=== PATIENT | male | born 1940 | race Caucasian/White ===

== ENCOUNTER → 2018-01-11 08:23 | Outpatient (CLI) | payer MEDICARE, OTHER, SELFPAY ==
[2017-12-31 11:36] VITALS: BP 156/85; PULSE 67; RESP 18; TEMP 37.4; O2SAT 99; BMI 25.0
--- NOTE | 2017-12-31 11:44 | SDCEKG_ITS ---
Test Reason : Blood Pressure : / mmHG Vent. Rate : 065 BPM Atrial Rate : 065 BPM P-R Int : 184 ms QRS Dur : 106 ms QT Int : 410 ms P-R-T Axes : 020 056 080 degrees QTc Int : 426 ms Normal sinus rhythm Normal ECG Confirmed by SANDER CHAIREZ, NEREYDA ([id number]), editor trade journal SOHA DIAZ ([id number] on 01/01/2018 8:28:47 AM Referred By: Patrick Watson Confirmed By:NEREYDA BOUCHER MD
[2017-12-31 12:35] LABS: Hematocrit 35.9 % (40-54); Hemoglobin 12.3 g/dl (13.0-16.5); Mean Corp Hgb Conc 34.3 g/gl (32-36); Mean Corpuscular Hgb 28.6 pg (27.0-32.0); Mean Corpuscular Volume 83.5 fL (80-94); Mean Platelet Vol. 9.3 fl (6.2-12.0); Platelet Count 184 K/mm3 (150-450); RBC Distribution Width CV 15.5 % (11.6-14.6); RBC Distribution Width SD 47.5 fl (35.1-43.9)
[2017-12-31 12:37] LABS: Scan Indicated on CBC? Y/N NO
[2017-12-31 13:35] LABS: Anion Gap 8 (5-15); BUN 19 mg/dL (7-18); BUN/Creat Ratio 21.5 RATIO (10-20); Calcium,Total 8.8 mg/dL (8.5-10.1); Chloride 89 mmol/L (98-107); Creatinine, Serum 0.88 mg/dL (0.70-1.30); EST Glomerular Filtration Rate 89 mL/min (>60); Est Glom Filt Rate - Afr Amer 108 mL/min (>60); Estimated Creatinine Clearance 79.61 ml/min; Glucose 72 mg/dL (74-106); Potassium 4.6 mmol/L (3.5-5.1); Sodium Level 123 mmol/L (136-145); Thyroid Stim Hormone (TSH) 5.33 uIU/mL (0.358-3.74)
== END ==
PROVIDERS: Anesthesiology; Family Provider Family Medicine; PCP Family Medicine; Visit Provider Urology
DX: Z01.812 Encounter for preprocedural laboratory examination (principal)
CPT/HCPCS: 80048; 84443; 85027; 93005

== ENCOUNTER 2018-01-23 05:21 | Day surgery (SDC) | payer MEDICARE, OTHER, SELFPAY ==
[2018-01-23] VITALS (12 sets, daily range): BP systolic 104–168; BP diastolic 58–85; PULSE 60–75; RESP 12–18; TEMP 36.3–36.8; O2SAT 94–100; BMI 22.6
[2018-01-23 06:36] LABS: Prothrombin Time Fingerstick 13.3 SEC (11.9-14.4)
[2018-01-23] MEDS: Cefazolin 2 GM in 0.9% Normal Saline 100 ML IV (07:17)
--- NOTE | 2018-01-23 08:05 | PCM.OPRPT ---
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 We tried several antispasm bladder medications without improvement I told the patient most likely benefit would be from doing a resection of his bladder neck contracture and a TURP of the prostate. 78-year-old male taken back to the operating room after smooth induction of general anesthesia he was placed in dorsal lithotomy position I went into the bladder with a 21 [place] rigid cystourethroscope when I got to the sphincter or the Sandeep had been partially destroyed from prior procedure, difficult to identify but appeared to be right above the sphincter he did have a small contracted channel from the sphincter into his bladder. I then took up to the scope that I put in the 26 [place] continuous flow resectoscope and then started the resection with the button I started at the bladder neck contracture and cut this wide open circumferentially to open up the channel very nicely I then very carefully worked my way back to the sphincter again the verumontanum is been partially dispersed destroyed from prior laser surgery but I was able to identify the sphincter complex and made sure that I did not resect past the sphincter complex. I the use the button I circumferentially vaporized the BPH and obstructive tissue and opened up the bladder neck contracture to all have a nice wide open channel into the bladder the left to right ureteral orifices were uninjured inside the bladder there were no tumors or stones on the bladder was heavily trabeculated from chronic obstruction. After resecting the prostate the bladder neck contracture he had a nice wide open channel from the sphincter all the way into the bladder remove the scope did a Valsalva maneuver and had a wide open flow. I went back in with the 24 [place] resectoscope and very carefully smoothed out the apical tissue pulled back behind the sphincter and the sphincter coapted together so felt very confident that his bladder control and sphincter mechanism worked fairly well I then drained the bladder put a 22 [place] catheter into the bladder with continuous bladder irrigation the patient was taken back to PACU in good condition. Type of Anesthesia:: General Drains: 22 fr leiva - Admit VTE Documentation VTE Present on Admission: No VTE Mechan Device Prophylaxis: SCD's VTE Pharm Prophylaxis ordered?: No Reason prophylaxis not ordered:: Treatment Not Indicated
--- NOTE | 2018-01-23 08:09 | OP.PCM_ITS ---
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 We tried several antispasm bladder medications without improvement I told the patient most likely benefit would be from doing a resection of his bladder neck contracture and a TURP of the prostate. 78-year-old male taken back to the operating room after smooth induction of general anesthesia he was placed in dorsal lithotomy position I went into the bladder with a 21 [place] rigid cystourethroscope when I got to the sphincter or the Sandeep had been partially destroyed from prior procedure, difficult to identify but appeared to be right above the sphincter he did have a small contracted channel from the sphincter into his bladder. I then took up to the scope that I put in the 26 [place] continuous flow resectoscope and then started the resection with the button I started at the bladder neck contracture and cut this wide open circumferentially to open up the channel very nicely I then very carefully worked my way back to the sphincter again the verumontanum is been partially dispersed destroyed from prior laser surgery but I was able to identify the sphincter complex and made sure that I did not resect past the sphincter complex. I the use the button I circumferentially vaporized the BPH and obstructive tissue and opened up the bladder neck contracture to all have a nice wide open channel into the bladder the left to right ureteral orifices were uninjured inside the bladder there were no tumors or stones on the bladder was heavily trabeculated from chronic obstruction. After resecting the prostate the bladder neck contracture he had a nice wide open channel from the sphincter all the way into the bladder remove the scope did a Valsalva maneuver and had a wide open flow. I went back in with the 24 [place] resectoscope and very carefully smoothed out the apical tissue pulled back behind the sphincter and the sphincter coapted together so felt very confident that his bladder control and sphincter mechanism worked fairly well I then drained the bladder put a 22 [place] catheter into the bladder with continuous bladder irrigation the patient was taken back to PACU in good condition. Type of Anesthesia:: General Drains: 22 fr leiva - Admit VTE Documentation VTE Present on Admission: No VTE Mechan Device Prophylaxis: SCD's VTE Pharm Prophylaxis ordered?: No Reason prophylaxis not ordered:: Treatment Not Indicated
[2018-01-23] MEDS: Docusate Sodium 100 MG Capsule PO ×2 (13:02→22:42)
[2018-01-23] MEDS: Pantoprazole Sodium 40 MG Tablet PO (13:02)
[2018-01-23] MEDS: Ciprofloxacin 500 MG Tablet PO ×2 (13:02→22:44)
[2018-01-23] MEDS: 0.9% Normal Saline 1,000 ML 75 ML IV (17:32)
[2018-01-23] MEDS: Gabapentin 300 MG Capsule PO (17:33)
[2018-01-23] MEDS: Acetaminophen 325 MG Tablet PO (20:25)
[2018-01-23] MEDS: oxyCODONE 5 MG Tablet PO (20:26)
[2018-01-23] MEDS: diazePAM 5 MG Tablet PO (22:42)
[2018-01-23] MEDS: HYDROcodone Bitartrate/Apap 5/325 Tablet PO (22:42)
[2018-01-23] MEDS: Atorvastatin Calcium 40 MG Tablet PO (22:43)
[2018-01-24 02:33] VITALS: BP 117/64; PULSE 67; RESP 16; TEMP 36.6; O2SAT 99
[2018-01-24] MEDS: 0.9% Normal Saline 1,000 ML 75 ML IV (06:20)
[2018-01-24 06:21] VITALS: TEMP 36.4
[2018-01-24] MEDS: HYDROcodone Bitartrate/Apap 5/325 Tablet PO (06:23)
--- NOTE | 2018-01-24 07:05 | PCM.DC.URO ---
Discharge Diet: Light diet - advance as tolerated Discharge Activity: Return to Normal Activity, May Not Drive May shower in (days): 1 Call your doctor if your incision/area has: Continuous Slow Oozing, Sudden Increased Bleeding, Increased Pain/ Swelling, Increased Redness, Foul Smelling Discharge, Swelling at the incision site Call your doctor if you observe: Fever of 101 or Higher, Inability to urinate Suture Line Care: Avoid Pulling/Pushing, Avoid Pinching/Bending Instructions: Transurethral Resection of the Prostate (TURP): Home Recovery Allergies/Adverse Reactions: Allergies dutasteride Allergy (Verified 01/11/18 08:22) Rash propoxyphene [From Darvocet-N] Allergy (Verified 01/11/18 08:22) Hives Medications to take at Discharge Amiodarone HCl [Cordarone] 200 mg PO DAILY 12/31/17 Aspirin [Aspir-Low] 81 mg PO DAILY 12/31/17 Atorvastatin Calcium [Lipitor] 40 mg PO DAILY 12/31/17 Cetirizine HCl [Zyrtec] 10 mg PO DAILY 12/31/17 Desmopressin Acetate 0.2 mg PO QHS 12/31/17 Diazepam [Valium] 5 mg PO TID PRN 12/31/17 Dutasteride [Avodart] 0.5 mg PO DAILY 12/31/17 Gabapentin [Neurontin] 300 mg PO BIDCM 12/31/17 Hydrocodone/Acetaminophen [Hydrocodon-Acetaminophn 10-325] 1 each PO Q6H PRN PRN 12/31/17 Liothyronine Sodium [Cytomel] 50 mcg PO DAILY 12/31/17 Mirabegron [Myrbetriq] 25 mg PO DAILY 12/31/17 Warfarin [Coumadin ([facility])] 2.5 mg PO SUMOTUTHFR 12/31/17 Warfarin [Coumadin ([facility])] 5 mg PO WESA 12/31/17 Ciprofloxacin [Cipro] 500 mg PO BID #14 tab 01/24/18 Docusate Sodium [Colace] 100 mg PO BID #20 cap 01/24/18 The following prescriptions were given: Ciprofloxacin [Cipro] 500 mg PO BID #14 tab Docusate Sodium [Colace] 100 mg PO BID #20 cap Primary Care Physician: Sebas Ruiz [Primary Care Provider] - Please Follow Up With: Patrick Watson MD - call if need to change appt. When: appt with Dr Watson February 07 at 10:30 am
--- NOTE | 2018-01-24 07:09 | PCM.DC.URO ---
Discharge Diet: Light diet - advance as tolerated Discharge Activity: Return to Normal Activity, May Not Drive May shower in (days): 1 Call your doctor if your incision/area has: Continuous Slow Oozing, Sudden Increased Bleeding, Increased Pain/ Swelling, Increased Redness, Foul Smelling Discharge, Swelling at the incision site Call your doctor if you observe: Fever of 101 or Higher, Inability to urinate Suture Line Care: Avoid Pulling/Pushing, Avoid Pinching/Bending Instructions: Transurethral Resection of the Prostate (TURP): Home Recovery Allergies/Adverse Reactions: Allergies dutasteride Allergy (Verified 01/11/18 08:22) Rash propoxyphene [From Darvocet-N] Allergy (Verified 01/11/18 08:22) Hives Medications to take at Discharge Amiodarone HCl [Cordarone] 200 mg PO DAILY 12/31/17 Atorvastatin Calcium [Lipitor] 40 mg PO DAILY 12/31/17 Cetirizine HCl [Zyrtec] 10 mg PO DAILY 12/31/17 Diazepam [Valium] 5 mg PO TID PRN 12/31/17 Gabapentin [Neurontin] 300 mg PO BIDCM 12/31/17 Hydrocodone/Acetaminophen [Hydrocodone-Acetamin 10-325 mg] 1 each PO Q6H PRN PRN 12/31/17 Liothyronine Sodium [Cytomel] 50 mcg PO DAILY 12/31/17 Warfarin [Coumadin] 2.5 mg PO SUMOTUTHFR 12/31/17 Warfarin [Coumadin] 5 mg PO WESA 12/31/17 Ciprofloxacin [Cipro] 500 mg PO BID #14 tab 01/24/18 Docusate Sodium [Colace] 100 mg PO BID #20 cap 01/24/18 The following prescriptions were given: Ciprofloxacin [Cipro] 500 mg PO BID #14 tab Docusate Sodium [Colace] 100 mg PO BID #20 cap Primary Care Physician: Sebas Ruiz [Primary Care Provider] - Please Follow Up With: Patrick Watson MD When: appt on February 07 at 10:30am for follow up.
[2018-01-24] MEDS: Ciprofloxacin 500 MG Tablet PO (08:46)
[2018-01-24] MEDS: Docusate Sodium 100 MG Capsule PO (08:46)
[2018-01-24] MEDS: Gabapentin 300 MG Capsule PO (08:46)
[2018-01-24] MEDS: Amiodarone 200 MG Tablet PO (08:47)
[2018-01-24] MEDS: Pantoprazole Sodium 40 MG Tablet PO (08:47)
[2018-01-24] MEDS: Loratadine 10 MG Tablet PO (08:50)
[2018-01-24 08:59] VITALS: BP 133/92; PULSE 68; RESP 18; TEMP 36.4; O2SAT 98
[2018-01-24 10:05] VITALS: BP 138/70; PULSE 74; RESP 18; TEMP 36.9; O2SAT 98
== END 2018-01-24 07:10 | disposition home or self-care (01) ==
LOC: SDC 05:22 → MS3 09:16
PROVIDERS: Family Provider Family Medicine; PCP Family Medicine; Visit Provider Urology
PROC: (CPT 52630; principal; 2018-01-23 07:05)
DX: N40.1 Benign prostatic hyperplasia with lower urinary tract symptoms (principal); N13.8 Other obstructive and reflux uropathy; I48.91 Unspecified atrial fibrillation; H91.90 Unspecified hearing loss, unspecified ear; I25.10 Atherosclerotic heart disease of native coronary artery without angina pectoris; Z79.899 Other long term (current) drug therapy; Z79.82 Long term (current) use of aspirin; Z79.01 Long term (current) use of anticoagulants; Z95.1 Presence of aortocoronary bypass graft; I10 Essential (primary) hypertension; Q21.1 Atrial septal defect; E78.00 Pure hypercholesterolemia, unspecified; K21.9 Gastro-esophageal reflux disease without esophagitis; F41.9 Anxiety disorder, unspecified
CPT/HCPCS: 52630; 36416; 85610; J7030; J7120; J2405

== ENCOUNTER → 2018-08-20 18:44 | Outpatient (CLI) | payer MEDICARE, OTHER, SELFPAY | PROVIDERS: Referring Provider Urology; Visit Provider Urology | DX: R82.99 Other abnormal findings in urine (principal); R35.0 Frequency of micturition | CPT/HCPCS: 87086 ==

== ENCOUNTER 2018-09-20 11:31 | Day surgery (SDC) | payer MEDICARE, OTHER, SELFPAY ==
[2018-09-13 11:13] VITALS: BP 144/76; PULSE 66; RESP 16; TEMP 36.9; O2SAT 97; BMI 25.2
[2018-09-13 12:26] LABS: Hematocrit 42.9 % (40-54); Mean Corp Hgb Conc 32.6 g/gl (32-36); Mean Corpuscular Hgb 28.7 pg (27.0-32.0); Mean Corpuscular Volume 88.1 fL (80-94); Mean Platelet Vol. 10.9 fl (6.2-12.0); Platelet Count 195 K/mm3 (150-450); RBC Distribution Width CV 15.3 % (11.6-14.6); RBC Distribution Width SD 49.5 fl (35.1-43.9); Red Blood Count 4.87 M/mm3 (4.6-6.2); White Blood Count 6.4 K/mm3 (4.4-11.0)
[2018-09-13 12:30] LABS: Scan Indicated on CBC? Y/N NO
[2018-09-13 12:54] LABS: Anion Gap 7 (5-15); BUN 21 mg/dL (7-18); BUN/Creat Ratio 17.1 RATIO (10-20); Calcium,Total 9.1 mg/dL (8.5-10.1); Chloride 108 mmol/L (98-107); Creatinine, Serum 1.23 mg/dL (0.70-1.30); EST Glomerular Filtration Rate 61 mL/min (>60); Est Glom Filt Rate - Afr Amer 73 mL/min (>60); Estimated Creatinine Clearance 57.74 ml/min; Glucose 97 mg/dL (74-106); Potassium 4.8 mmol/L (3.5-5.1); Sodium Level 140 mmol/L (136-145); Thyroid Stim Hormone (TSH) 0.08 uIU/mL (0.358-3.74)
[2018-09-20] VITALS (8 sets, daily range): BP systolic 119–173; BP diastolic 59–86; PULSE 57–68; RESP 16–18; TEMP 36.6–37.3; O2SAT 95–99; BMI 25.2
[2018-09-20 12:10] LABS: Prothrombin Time Fingerstick 11.9 SEC (11.9-14.4)
--- NOTE | 2018-09-20 15:37 | DCINST_ITS ---
Discharge Diet: Light diet - advance as tolerated Discharge Activity: May not drive while taking narcotic pain medications. May shower in (days): 1 Call your doctor if your incision/area has: Continuous Slow Oozing, Sudden Increased Bleeding, Increased Pain/ Swelling, Increased Redness, Foul Smelling Discharge, Swelling at the incision site Instructions: Transurethral Resection of the Prostate (TURP): Home Recovery Allergies/Adverse Reactions: Allergies dutasteride Allergy (Verified 09/13/18 11:01) Rash propoxyphene [From Darvocet-N] Allergy (Verified 09/13/18 11:01) Hives Medications to take at Discharge Amiodarone HCl [Cordarone] 200 mg PO DAILY 12/31/17 Atorvastatin Calcium [Lipitor] 40 mg PO DAILY 12/31/17 Diazepam [Valium] 5 mg PO TID PRN 12/31/17 Gabapentin [Neurontin] 300 mg PO BIDCM 12/31/17 Hydrocodone/Acetaminophen [Hydrocodone-Acetamin 10-325 mg] 1 each PO Q6H PRN PRN 12/31/17 Liothyronine Sodium [Cytomel] 50 mcg PO DAILY 12/31/17 Warfarin [Coumadin] 2.5 mg PO SUMOTUTHFR 12/31/17 Warfarin [Coumadin] 5 mg PO WESA 12/31/17 Docusate Sodium [Colace] 100 mg PO BID #20 cap 01/24/18 Aspirin E.C. [Ecotrin] 81 mg PO DAILY@0800 09/13/18 Primary Care Physician: Sebas Ruiz MD [Primary Care Provider] - Test Results: Test results from this visit will be discussed in further detail at your follow- up appointment, if applicable. Please Follow Up With: Patrick Watson MD When: in 2 weeks, please call to make an appointment.
[2018-09-20] MEDS: Cefazolin 2 GM in 0.9% Normal Saline 100 ML IV (15:44)
--- NOTE | 2018-09-20 16:08 | PCM.OPRPT ---
Report of Operation Date of Procedure: 09/20/18 Pre-Operative Diagnosis: Status post TURP this past year developed a bladder neck contracture Post-Operative Diagnosis: Same Surgery/Procedure Performed:: Transurethral resection of a bladder neck contracture Description of Surgical Findings:: 78-year-old male taken back to the operating room after smooth induction of anesthesia he was placed supine on the table in dorsal lithotomy position the penis testicles are prepped and draped in usual fashion went into the bladder with a 24 [place] noncontinuous flow resectoscope with the button vaporization once I got in the past the sphincter identified the verumontanum somewhat flat but I could see that there was 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 and a bladder neck contracture at the opening of the channel I then used the button vaporization to incise the bladder neck contracture at the 7:00 and the 5 o'clock position down to the muscle fibers both in the right and left side this open up the bladder contracture nicely and then once this was done then I obtained hemostasis minimal there is no tissue extracted during the procedure and then after opening up the bladder neck contracture I did a flow test had a nice wide open flow the sphincter was intact and then I put a catheter into the bladder on continuous bladder irrigation the patient anesthetic is currently being reversed. Type of Anesthesia:: General Drains: 22fr 3 way - Admit VTE Documentation VTE Present on Admission: No VTE Mechan Device Prophylaxis: SCD's VTE Pharm Prophylaxis ordered?: No Reason prophylaxis not ordered:: Treatment Not Indicated
[2018-09-20] MEDS: diazePAM 5 MG Tablet PO (17:41)
[2018-09-20] MEDS: HYDROcodone Bitartrate/Apap 5/325 Tablet PO ×2 (17:45→23:50)
[2018-09-20] MEDS: 0.9% Normal Saline 1,000 ML 75 ML IV (18:30)
[2018-09-20] MEDS: Gabapentin 300 MG Capsule PO (19:52)
[2018-09-20] MEDS: Atorvastatin Calcium 40 MG Tablet PO (21:48)
[2018-09-20] MEDS: Docusate Sodium 100 MG Capsule PO (21:48)
[2018-09-20] MEDS: Ciprofloxacin 500 MG Tablet PO (21:48)
[2018-09-21] MEDS: diazePAM 5 MG Tablet PO (01:34)
[2018-09-21 04:04] VITALS: BP 106/57; PULSE 56; RESP 18; TEMP 36.6; O2SAT 96
[2018-09-21] MEDS: HYDROcodone Bitartrate/Apap 5/325 Tablet PO (06:11)
[2018-09-21 08:08] VITALS: BP 146/73; PULSE 62; RESP 18; TEMP 36.6; O2SAT 95
[2018-09-21] MEDS: Docusate Sodium 100 MG Capsule PO (08:21)
[2018-09-21] MEDS: Gabapentin 300 MG Capsule PO (08:21)
[2018-09-21] MEDS: Amiodarone 200 MG Tablet PO (08:21)
[2018-09-21] MEDS: Ciprofloxacin 500 MG Tablet PO (08:21)
[2018-09-21] MEDS: Aspirin E.C. 81 MG Tablet PO (08:22)
== END 2018-09-21 12:14 | disposition home or self-care (01) ==
LOC: SDC 11:33 → AC 11:33 → MS3 09-23 08:43
PROVIDERS: Family Provider Family Medicine; PCP Family Medicine; Referring Provider Urology; Visit Provider Urology
PROC: (CPT 52640; principal; 2018-09-20 13:30)
DX: N32.0 Bladder-neck obstruction (principal); N40.1 Benign prostatic hyperplasia with lower urinary tract symptoms; R35.0 Frequency of micturition; R35.1 Nocturia; R30.0 Dysuria; R39.12 Poor urinary stream; R32 Unspecified urinary incontinence; I25.10 Atherosclerotic heart disease of native coronary artery without angina pectoris; I48.91 Unspecified atrial fibrillation; I10 Essential (primary) hypertension; E06.9 Thyroiditis, unspecified; H91.90 Unspecified hearing loss, unspecified ear; Z79.01 Long term (current) use of anticoagulants; Z79.82 Long term (current) use of aspirin; Z79.899 Other long term (current) drug therapy; Z90.79 Acquired absence of other genital organ(s); Z95.1 Presence of aortocoronary bypass graft
CPT/HCPCS: 00912; 52640; 36415; 36416; 80048; 84443; 85027; 85610; 86850; 86900; J7030; J7120; J2405